=== PATIENT | female | born 1965 | race Caucasian/White ===

== ENCOUNTER 2017-12-16 13:00 | Inpatient (IN) | payer OTHER ==
[2017-12-18] MEDS ORDERED: LIPITOR40 MG PO (14:00)
[2017-12-18] MEDS ORDERED: BREO ELLIPTA 21 EACH IH (14:00)
[2017-12-18] MEDS ORDERED: LISINOPRIL20 MG PO (14:00)
[2017-12-18] MEDS ORDERED: SINGULAIR10 MG PO (14:01)
[2017-12-18] MEDS ORDERED: CLARITIN10 M1 PO (14:01)
[2017-12-18] MEDS ORDERED: ALBUTEROL0.63 MG/3 IH (14:02)
[2018-01-02] MEDS ORDERED: INTESTINEX680 M1 PO (08:30)
[2018-01-02] MEDS ORDERED: OXYC1TAB9 PO (08:30)
== END 2018-01-02 12:51 | disposition home or self-care (01) | DRG 331 ==
LOC: SURH 12-29 05:00 → SURG 12-29 07:06 → O/R 12-29 07:06 → SURH 12-29 13:00 → MEDI 12-29 15:51 → SURG 12-29 15:51
PROVIDERS: Surgery
PROC: 0DTP4ZZ Resection of Rectum, Percutaneous Endoscopic Approach (ICD-10-PCS; 2017-12-29)
PROC: 07TC4ZZ Resection of Pelvis Lymphatic, Percutaneous Endoscopic Approach (ICD-10-PCS; 2017-12-29)
PROC: 0DJD8ZZ Inspection of Lower Intestinal Tract, Via Natural or Artificial Opening Endoscopic (ICD-10-PCS; 2017-12-29)
PROC: 0DTN4ZZ Resection of Sigmoid Colon, Percutaneous Endoscopic Approach (ICD-10-PCS; principal; 2017-12-29 05:00)
PROC: 4A033R1 Measurement of Arterial Saturation, Peripheral, Percutaneous Approach (ICD-10-PCS; 2017-12-30)
PROC: 3E0F7GC Introduction of Other Therapeutic Substance into Respiratory Tract, Via Natural or Artificial Opening (ICD-10-PCS; 2017-12-30)
PROC: 4A12X4Z Monitoring of Cardiac Electrical Activity, External Approach (ICD-10-PCS; 2017-12-30)
DX: C19 Malignant neoplasm of rectosigmoid junction (principal); R59.0 Localized enlarged lymph nodes; I11.9 Hypertensive heart disease without heart failure; J44.9 Chronic obstructive pulmonary disease, unspecified; J45.20 Mild intermittent asthma, uncomplicated; G47.33 Obstructive sleep apnea (adult) (pediatric); D64.89 Other specified anemias

== ENCOUNTER 2018-12-22 09:00 | Day surgery (SDC) | payer OTHER ==
[~2018-12-22 09:00] MED LIST: ALBUTEROL0.63 MG/3 IH; BREO ELLIPTA 21 EACH IH; CLARITIN10 M1 PO; INTESTINEX680 M1 PO; LIPITOR40 MG PO; LISINOPRIL20 MG PO; OXYC1TAB9 PO; SINGULAIR10 MG PO
== END 2018-12-22 11:28 | disposition home or self-care (01) ==
LOC: AMB-ENDOS 09:00
DX: K57.30 Diverticulosis of large intestine without perforation or abscess without bleeding (principal)

== ENCOUNTER 2019-04-15 22:30 | Emergency (ER) | payer OTHER ==
[~2019-04-15] VITALS: Ht 167.6 cm; Wt 86.2 kg
[2019-04-16] MEDS ORDERED: ZOFRAN4 MG PO (03:56)
[2019-04-16] MEDS ORDERED: PEPCID40 MG PO (03:56)
[2019-04-16] MEDS ORDERED: INTESTINEX680 M1 PO (03:56)
== END 2019-04-16 04:10 ==
LOC: ER 22:30
DX: K52.89 Other specified noninfective gastroenteritis and colitis (principal)

== ENCOUNTER 2019-05-31 08:51 | Emergency (ER) | payer OTHER ==
[~2019-05-31] VITALS: Ht 167.6 cm; Wt 86.2 kg
[~2019-05-31 08:51] MED LIST changes: +PEPCID40 MG PO; +ZOFRAN4 MG PO
== END 2019-05-31 14:46 | disposition home or self-care (01) ==
LOC: ER 08:51
DX: J45.998 Other asthma (principal)

== ENCOUNTER 2020-02-08 08:06 | Day surgery (SDC) | payer OTHER | END 2020-02-08 11:00 | disposition home or self-care (01) | LOC: AMB-ENDOS 08:06 | PROVIDERS: ATTEND Surgery | DX: K62.89 Other specified diseases of anus and rectum (principal); Z20.828 Contact with and (suspected) exposure to other viral communicable diseases; K64.8 Other hemorrhoids ==

== ENCOUNTER 2021-03-20 07:35 | Day surgery (SDC) | payer OTHER | END 2021-03-20 12:25 | disposition home or self-care (01) | LOC: AMB-ENDOS 07:35 | PROVIDERS: ATTEND Surgery | DX: K62.89 Other specified diseases of anus and rectum (principal); K64.8 Other hemorrhoids; Z20.822 Contact with and (suspected) exposure to COVID-19 ==